=== PATIENT | female | born 2000 | race Two or more races ===

== ENCOUNTER 2024-09-09 08:09 | Outpatient (CLI) | payer OTHER | END 2024-09-09 08:11 | disposition home or self-care (01) | LOC: NUCLEAR 08:09 | PROVIDERS: ATTEND Internal Medicine | DX: I47.10 Supraventricular tachycardia, unspecified (principal) ==

== ENCOUNTER → 2024-12-03 | Outpatient (CLI) | payer OTHER | END | disposition home or self-care (01) | LOC: SONOGRAMA 08:51 | PROVIDERS: ATTEND Obstetrics & Gynecology | DX: R10.2 Pelvic and perineal pain (principal) ==

== ENCOUNTER 2024-12-10 13:09 | Outpatient (CLI) | payer OTHER | END 2024-12-10 14:39 | disposition home or self-care (01) | LOC: MRI 13:09 | DX: M79.672 Pain in left foot (principal) | CPT/HCPCS: 73718 ==

== ENCOUNTER 2024-12-11 07:30 | Outpatient (CLI) | payer OTHER ==
[2024-12-11 08:40] LABS: HEMATOCRIT 37.7 % (36.0-45.00); HEMOGLOBIN 12.2 g/dL (12.0-15.00); MEAN CELL VOLUME 78.4 fL (80.00-100.00); MEAN CORPUSCULAR HEMOGLOBIN 25.5 pg (27.00-32.0); MEAN CORPUSCULAR HGB CONC 32.5 g/dl (32.0-36.0); PLATELET COUNT 327 K/uL (150-450); RED BLOOD COUNT 4.81 M/uL (4.00-6.00); RED CELL DISTRIBUTION WIDTH 13.9 % (11.5-14.5)
[2024-12-11 08:52] LABS: URINE APPEARANCE Clear; URINE BILIRRUBIN Negative (NEGATIVE); URINE BLOOD Negative; URINE COLOR Yellow; URINE GLUCOSE Negative (NEGATIVE); URINE KETONE Negative (NEGATIVE); URINE LEUKOCYTE Negative; URINE NITRATE Negative; URINE PROTEIN Negative (NEGATIVE); URINE UROBILINOGEN 0.2 E.U./dl
[2024-12-11 08:53] LABS: URINE BACTERIA 107.6 uL (0.0-1933); URINE EPITHELIAL CELLS 5.3 uL (0.0-38.8); URINE RBC 4.4 uL (0.0-20.8)
[2024-12-11 09:00] LABS: URINE WBC 0.9 uL (0.0-23.2)
[2024-12-11 09:30] LABS: INR 1.05; PARTIAL THROMBOPLASTIN TIME 23.3 SECONDS (22.0-34.0); PROTHROMBIN TIME 11.4 SECONDS (9.0-11.5)
[2024-12-11 09:52] LABS: BILIRUBIN TOTAL 0.29 mg/dL (0.3-1.2); CALCIUM 9.3 mg/dL (8.5-10.1); CHOL HDL RATIO 2.8 (0-5.0); CREATININE SERUM 0.69 mg/dL (0.55-1.02); FERRITIN 40.8 NG/ML (8-252); FREE TRIODOTIRONINE 2.41 pg/ml (2.18-3.98); GFR 103.66; GLOBULINA 3.1 G/DL (2.4-3.5); POTASSIUM 4.54 mEq/L (3.5-5.1); T4 TOTAL 6.44 UG/DL (4.8-13.9); TOTAL PROTEIN 7.1 gm/dL (6.4-8.2); TSH 0.763 uIU/mL (0.358-3.74)
[2024-12-11 10:01] LABS: C-REACTIVE PROTEIN 0.4 MG/DL (0.00-0.29)
[2024-12-11 10:12] LABS: T3 TOTAL 1.05 ng/ml (0.846-2.02); VITAMIN D3 25 HYDROXY 52.28 ng/ml (30-120)
[2024-12-12 10:05] LABS: CA 125 5.2 U/mL (0.0-38.1); FOLLICLE STIMULATING HORMONE 7.8 mIU/mL (.); PROGESTERONA 0.1 ng/mL (.); PROLACTIN 10.9 ng/mL (4.8-33.4)
== END 2024-12-11 07:31 | disposition home or self-care (01) ==
LOC: LAB 07:30
PROVIDERS: ATTEND Obstetrics & Gynecology
DX: E55.9 Vitamin D deficiency, unspecified (principal); N95.1 Menopausal and female climacteric states; E03.9 Hypothyroidism, unspecified; N39.0 Urinary tract infection, site not specified; E86.0 Dehydration; E78.00 Pure hypercholesterolemia, unspecified; R94.6 Abnormal results of thyroid function studies; D64.9 Anemia, unspecified; K92.1 Melena; E61.1 Iron deficiency; M25.50 Pain in unspecified joint; E22.1 Hyperprolactinemia; Z32.00 Encounter for pregnancy test, result unknown; N93.9 Abnormal uterine and vaginal bleeding, unspecified

== ENCOUNTER 2024-12-11 10:51 | Outpatient (CLI) | payer OTHER | END 2024-12-11 10:52 | disposition home or self-care (01) | LOC: NUCLEAR 10:51 | DX: I73.9 Peripheral vascular disease, unspecified (principal) ==

== ENCOUNTER 2024-12-14 10:40 | Outpatient (CLI) | payer OTHER | END 2024-12-14 10:41 | disposition home or self-care (01) | LOC: NUCLEAR 10:40 | DX: I73.9 Peripheral vascular disease, unspecified (principal) ==

== ENCOUNTER 2025-02-25 06:53 | Outpatient (CLI) | payer OTHER ==
[2025-02-25 12:14] LABS: ALBUMIN 3.8 gm/dL (3.4-5.0); BILIRUBIN TOTAL 0.45 mg/dL (0.3-1.2); CALCIUM 8.7 mg/dL (8.5-10.1); CREATININE SERUM 0.79 mg/dL (0.55-1.02); GFR 87.97; GLOBULINA 2.9 G/DL (2.4-3.5); POTASSIUM 4.56 mEq/L (3.5-5.1); TOTAL PROTEIN 6.7 gm/dL (6.4-8.2)
[2025-02-25 12:35] LABS: PH,URINE 5.5 (5.0-8.0); URINE APPEARANCE Clear; URINE BACTERIA 610.6 uL (0.0-1933); URINE BILIRRUBIN Negative (NEGATIVE); URINE BLOOD Large; URINE COLOR Yellow; URINE EPITHELIAL CELLS 21.3 uL (0.0-38.8); URINE GLUCOSE Negative (NEGATIVE); URINE KETONE Negative (NEGATIVE); URINE LEUKOCYTE Negative; URINE NITRATE Negative; URINE PROTEIN Negative (NEGATIVE); URINE RBC 216.2 uL (0.0-20.8); URINE UROBILINOGEN 0.2 E.U./dl; URINE WBC 12.1 uL (0.0-23.2)
[2025-02-25 12:40] LABS: URINE CAST 0.14 uL (0.0-1.40)
[2025-02-25 12:49] LABS: INR 1.03; PARTIAL THROMBOPLASTIN TIME 28.6 SECONDS (22.0-34.0)
[2025-02-25 13:03] LABS: PROTHROMBIN TIME 11.2 SECONDS (9.0-11.5)
[2025-02-25 13:06] LABS: HEMATOCRIT 35.2 % (36.0-45.00); HEMOGLOBIN 11.6 g/dL (12.0-15.00); MEAN CELL VOLUME 78.7 fL (80.00-100.00); PLATELET COUNT 299 K/uL (150-450); RED BLOOD COUNT 4.47 M/uL (4.00-6.00); RED CELL DISTRIBUTION WIDTH 13.6 % (11.5-14.5)
[2025-02-25 13:17] LABS: TSH 0.802 uIU/mL (0.358-3.74)
== END 2025-02-25 06:57 | disposition home or self-care (01) ==
LOC: LAB 06:53
DX: Z01.812 Encounter for preprocedural laboratory examination (principal)

== ENCOUNTER 2025-04-13 11:50 | Emergency (ER) | payer OTHER ==
[~2025-04-13] VITALS: Ht 157.5 cm; Wt 72.6 kg
[2025-04-13] MEDS ORDERED: PREDNISONE10 M2 PO (12:21)
[2025-04-13 13:49] LABS: BASO % 0.2 % (0.1-1.2); EOS # 0.16 (0.04-0.54); EOS % 0.9 % (0.7-7.0); HEMATOCRIT 36.8 % (34.1-44.9); LYMPH # 3.39 (1.18-3.74); LYMPH % 18.9 % (19.3-53.1); MEAN CORPUSCULAR HEMOGLOBIN 25.3 pg (25.6-32.2); MONO # 1.33 (0.24-0.82); MONO % 7.4 % (4.7-12.5); NEUT # 12.92 (1.56-6.13); NEUT % 72.3 % (34.0-71.1); PLATELET COUNT 352 K/uL (163-369); RED BLOOD COUNT 4.75 M/uL (3.93-5.22); RED CELL DISTRIBUTION WIDTH 13.4 % (11.6-14.4)
[2025-04-13 14:19] LABS: ALBUMIN 4.1 gm/dL (3.4-5.0); BILIRUBIN TOTAL 0.47 mg/dL (0.3-1.2); CALCIUM 9.6 mg/dL (8.5-10.1); CREATININE SERUM 0.74 mg/dL (0.55-1.02); GFR 94.86; GLOBULINA 3.5 G/DL (2.4-3.5); POTASSIUM 4.02 mEq/L (3.5-5.1); TOTAL PROTEIN 7.6 gm/dL (6.4-8.2)
[2025-04-13 14:50] LABS: URINE APPEARANCE Clear; URINE BILIRRUBIN Negative (NEGATIVE); URINE BLOOD Negative; URINE COLOR Yellow; URINE GLUCOSE Negative (NEGATIVE); URINE KETONE Negative (NEGATIVE); URINE LEUKOCYTE Negative; URINE NITRATE Negative; URINE PROTEIN Negative (NEGATIVE); URINE UROBILINOGEN 0.2 E.U./dl
[2025-04-13 14:54] LABS: URINE BACTERIA 601.8 uL (0.0-1933); URINE EPITHELIAL CELLS 12.3 uL (0.0-38.8); URINE RBC 2.2 uL (0.0-20.8); URINE WBC 4.1 uL (0.0-23.2)
[2025-04-13] MEDS ORDERED: KETOROLAC TROMETHAMINE 30 MG VIAL ONE (16:33)
[2025-04-13] MEDS ORDERED: KETOROLAC TROMETHAMINE 30 MG VIAL IV ONE (16:45)
[2025-04-13] MEDS ORDERED: FAMOtidine 10 MG/ML (4ML VIAL) IV ONE (18:30)
[2025-04-13] MEDS ORDERED: PIPERACILLIN/TAZOBACTAM SODIUM 3.375 GM VIAL IV ONE ×2 (18:30→19:04)
[2025-04-13] MEDS ORDERED: FAMOTIDINE/PF 20 MG/2 ML VIAL ONE (19:05)
[2025-04-13] MEDS ORDERED: NORFLEX100MG PO (20:24)
[2025-04-13] MEDS ORDERED: PEPCID AC20 MG PO (20:24)
[2025-04-13] MEDS ORDERED: ZOFRAN8 MG PO (20:24)
[2025-04-13] MEDS ORDERED: BACTRIM DS TAB1 EACH PO (20:24)
== END 2025-04-13 20:43 | disposition home or self-care (01) ==
LOC: ER 11:50
PROVIDERS: Emergency Medicine
DX: N83.209 Unspecified ovarian cyst, unspecified side (principal); R10.2 Pelvic and perineal pain
CPT/HCPCS: 36415; 74177; 76856; Q9965

== ENCOUNTER 2025-08-20 06:13 | Emergency (ER) | payer OTHER ==
[~2025-08-20] VITALS: Ht 154.9 cm; Wt 81.2 kg
[~2025-08-20 06:13] MED LIST: BACTRIM DS TAB1 EACH PO; NORFLEX100MG PO; PEPCID AC20 MG PO; PREDNISONE10 M2 PO; ZOFRAN8 MG PO
[2025-08-20] MEDS ORDERED: PRENATABS RX T1 EACH (06:36)
[2025-08-20] MEDS ORDERED: FOLIC ACID0.8 M1 (06:36)
[2025-08-20] MEDS ORDERED: CLARITIN (06:37)
[2025-08-20 08:15] LABS: BASO % 0.2 % (0.1-1.2); EOS # 0.08 (0.04-0.54); EOS % 0.7 % (0.7-7.0); LYMPH # 2.09 (1.18-3.74); LYMPH % 18.2 % (19.3-53.1); MEAN PLATELET VOLUME 9.80 fl (9.4-12.4); MONO # 0.73 (0.24-0.82); MONO % 6.3 % (4.7-12.5); NEUT # 8.54 (1.56-6.13); NEUT % 74.3 % (34.0-71.1); RED CELL DISTRIBUTION WIDTH 14.3 % (11.6-14.4)
== END 2025-08-20 10:40 | disposition home or self-care (01) ==
LOC: ER 06:14
PROVIDERS: General Practice
DX: O20.8 Other hemorrhage in early pregnancy (principal); Z3A.01 Less than 8 weeks gestation of pregnancy; Z87.09 Personal history of other diseases of the respiratory system

== ENCOUNTER 2025-08-23 09:26 | Outpatient (CLI) | payer OTHER ==
[~2025-08-23 09:26] MED LIST changes: +CLARITIN; +FOLIC ACID0.8 M1; +PRENATABS RX T1 EACH
== END 2025-08-23 09:34 | disposition home or self-care (01) ==
LOC: LAB 09:26
PROVIDERS: ATTEND General Practice
DX: N93.9 Abnormal uterine and vaginal bleeding, unspecified (principal)